=== PATIENT | female | born 2005 | race Caucasian/White ===

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

== ENCOUNTER → 2025-01-27 | Outpatient (CLI) | payer OTHER ==
[~2025-01-27] MED LIST changes: -PROHANCE 279.3MG/ML 15ML VIAL ONE; -PROHANCE 279.3MG/ML 5ML VIAL ONE
[2025-01-27 15:16] LABS: PLATELET COUNT, AUTOMATED 453 10^3/uL (150-450)
[2025-01-27 15:16] LABS: Trichomonas vaginalis (AMP) NOT DETECTED (NEGATIVE)
[2025-01-27 15:19] LABS: ALT/SGPT 68 U/L (7.0-40); AST/SGOT 58 U/L (<34); CALCIUM LEVEL 9.8 MG/DL (8.5-10.1); CARBON DIOXIDE LEVEL 25 MMOL/L (20-31); CHLORIDE LEVEL 105 MMOL/L (98-107); CREATININE FOR GFR 0.68 MG/DL (0.55-1.30); GLOMERULAR FILTRATION RATE > 90.0 (>60); POTASSIUM SERUM 4.4 MMOL/L (3.5-5.1); SODIUM LEVEL 142 MMOL/L (136-145)
[2025-01-27 15:21] LABS: FREE T4 1.28 NG/DL (0.83-1.43); PROLACTIN 8.96 NG/ML
[2025-01-27 15:38] LABS: ESTIMATED AVERAGE GLUCOSE 94.0 MG/DL (60-110)
[2025-01-27 15:40] LABS: GC DNA AMPLIFICATION NEGATIVE (NEGATIVE)
[2025-01-31 17:24] LABS: FACTOR 8 RISTOCETIN COFACTOR 63 % normal (42-200); FACTOR VIII AG (VON WILLEBRAN) 102 % (50-217)
== END ==
LOC: M PLALAB 10:27
PROVIDERS: ATTEND Obstetrics & Gynecology
DX: Z01.419 Encounter for gynecological examination (general) (routine) without abnormal findings (principal); Z11.3 Encounter for screening for infections with a predominantly sexual mode of transmission; N93.9 Abnormal uterine and vaginal bleeding, unspecified